=== PATIENT | male | born 1980 | race Caucasian/White ===

== ENCOUNTER 2017-04-06 11:30 | Emergency (ER) | payer MEDICAID ==
[~2017-04-06] VITALS: Ht 172.7 cm; Wt 76.0 kg
[2017-04-06] MEDS ORDERED: MORPHINE SULFATE 4 MG/ML CPJ (NOT FOR IM USE) IV STA (11:39)
[2017-04-06] MEDS ORDERED: SODIUM CHLORIDE 0.9% 1,000 ML IV ONE (11:39)
[2017-04-06] MEDS ORDERED: ONDANSETRON HCL 4MG/2ML VIAL IV STA (11:39)
[2017-04-06] MEDS ORDERED: ETOMIDATE 2MG/ML 10ML VIAL IV ONE (12:15)
[2017-04-06 14:06] VITALS: BP 122/69
== END 2017-04-06 13:45 | disposition home or self-care (01) ==
LOC: ER 11:30
DX: S43.004A Unspecified dislocation of right shoulder joint, initial encounter (principal); Y04.0XXA Assault by unarmed brawl or fight, initial encounter; Y93.89 Activity, other specified; Y92.89 Other specified places as the place of occurrence of the external cause; F17.210 Nicotine dependence, cigarettes, uncomplicated; Z71.6 Tobacco abuse counseling
CPT/HCPCS: 23650; 73030; 96374; 96375; 99285; J2270; J2405; J3490; J7030; Z7610; L3670

== ENCOUNTER 2023-12-23 19:44 | Emergency (ER) | payer MEDICAID, OTHER ==
[~2023-12-23] VITALS: Ht 170.2 cm; Wt 82.0 kg
[2023-12-23 20:54] VITALS: BP 142/88; PULSE 85; RESP 18; TEMP 98.2; O2SAT 95
== END 2023-12-23 22:25 | disposition home or self-care (01) ==
LOC: ER 19:44
DX: Z00.00 Encounter for general adult medical examination without abnormal findings (principal)
CPT/HCPCS: 99281

== ENCOUNTER 2024-07-20 12:02 | Emergency (ER) | payer MEDICAID, OTHER ==
[~2024-07-20] VITALS: Ht 170.2 cm; Wt 90.0 kg
[2024-07-20 12:05] VITALS: BP 162/91; PULSE 88; RESP 16; TEMP 98.1; O2SAT 98
== END 2024-07-21 14:04 | disposition left against medical advice (07) ==
LOC: ER 12:02
DX: R46.89 Other symptoms and signs involving appearance and behavior (principal)
CPT/HCPCS: 99283

== ENCOUNTER 2024-07-26 15:44 | Emergency (ER) | payer MEDICAID ==
[~2024-07-26] VITALS: Ht 170.2 cm; Wt 77.0 kg
[2024-07-26 16:02] VITALS: TEMP 98.7; O2SAT 100
[2024-07-26 21:00] VITALS: BP 106/62; PULSE 72; RESP 18
[2024-07-26] MEDS: KETOROLAC 15MG/ML VIAL IM ONE (21:00)
[2024-07-26 22:02] LABS: CLARITY URINE CLEAR (CLEAR); COLOR URINE DARK YELLOW (YELLOW); GLUCOSE URINE NEGATIVE (NEGATIVE); KETONES URINE TRACE (NEGATIVE); LEUKOCYTE ESTERASE URINE TRACE (NEGATIVE); NITRITE URINE NEGATIVE (NEGATIVE); OCCULT BLOOD URINE NEGATIVE (NEGATIVE); PROTEIN URINE TRACE (NEGATIVE)
[2024-07-26 22:23] LABS: BACTERIA URINE 2+; MUCUS URINE 1+ /lpf (NONE/TRACE); RBC URINE NONE SEEN /hpf (0-2); SQUAMOUS EPITHELIAL CELL URINE FEW /lpf (RARE/1+); WBC URINE 0-2 /hpf (0-2)
[2024-07-26] MEDS ORDERED: NAPR-1176 MT (22:28)
== END 2024-07-26 23:47 | disposition home or self-care (01) ==
LOC: ER 15:44
DX: N20.0 Calculus of kidney (principal)
CPT/HCPCS: 99285; 74176; 81003; 96372; J1885